=== PATIENT | female | born 1965 | race Caucasian/White ===

== ENCOUNTER 2019-05-08 13:33 | Emergency (ER) | payer SELFPAY ==
[~2019-05-08] VITALS: Ht 157.5 cm; Wt 64.0 kg
[2019-05-08 13:45] VITALS: Ht 157.5 cm; Wt 64.0 kg
[2019-05-08 16:43] VITALS: BP 109/44
== END 2019-05-08 16:43 | disposition home or self-care (01) ==
LOC: ED 13:33
DX: J18.9 Pneumonia, unspecified organism (principal); Z88.6 Allergy status to analgesic agent
CPT/HCPCS: 87804; J0696

== ENCOUNTER 2019-05-17 09:45 | Inpatient (IN) | payer SELFPAY ==
[~2019-05-17] VITALS: Ht 157.5 cm; Wt 71.4 kg
[2019-05-17 11:10] LABS: CALCIUM 8.7 mg/dL (8.5-10.1); CARBON DIOXIDE 28.8 mmol/L (21-32); CHLORIDE SERUM 99 mmol/L (98-107); CREATININE SERUM 0.7 mg/dL (0.6-1.0); GFR1 > 60 mL/min; GLUCOSE SERUM 97 mg/dL (74-106); POTASSIUM SERUM 3.3 mmol/L (3.5-5.1); SODIUM SERUM 137 mmol/L (136-145)
[2019-05-17 11:14] LABS: ALKALINE PHOSPHATASE 79 U/L (46-116); ALT/SGPT 15 U/L (14-59); AST/SGOT 14 U/L (15-37); BILIRUBIN TOTAL 0.34 mg/dL (0.20-1.00); TOTAL PROTEIN, SERUM 6.8 g/dL (6.4-8.2)
[2019-05-17 11:15] LABS: ALBUMIN 2.2 g/dL (3.4-5.0)
[2019-05-17 11:34] LABS: RED CELL DISTRIBUTION WIDTH 13.8 % (11.5-14.5)
[2019-05-17 11:35] LABS: PLATELET COUNT 451 x10^3mcL (130-400)
[2019-05-17 11:51] LABS: microscopic required? YES; urine erythrocyte NEGATIVE (NEGATIVE)
[2019-05-17 12:52] LABS: MAGNESIUM 1.9 mg/dL (1.8-2.4); PHOSPHOROUS 3.9 mg/dL (2.5-4.9)
[2019-05-17 12:53] LABS: CHOLESTEROL/HDL RATIO 3.9
[2019-05-17 13:01] LABS: T3 TOTAL 0.86 ng/mL
[2019-05-17 13:06] LABS: FREE T4 1.84 ng/dL (0.76-1.46); FREE THYROXINE INDEX 5.3 ug/dL (1.4-4.5)
[2019-05-17 13:15] LABS: BAND NEUTROPHIL 3 % (0-10); MONOCYTE 3 % (0-7); SEGMENTED NEUTROPHILS 23 % (37-75)
[2019-05-17 13:16] LABS: PLATELET MORPHOLOGY PLATELETS INCREASED; rbc morphology (normal/abnorm) NORMAL (NORMAL)
[2019-05-17 13:33] VITALS: BP 108/52
[2019-05-17 16:36] VITALS: BP 100/40
[2019-05-17 20:50] VITALS: BP 110/57
[2019-05-18 05:13] VITALS: BP 114/57
[2019-05-18 06:21] LABS: CARBON DIOXIDE 28.9 mmol/L (21-32); CHLORIDE SERUM 104 mmol/L (98-107); CREATININE SERUM 0.6 mg/dL (0.6-1.0); GFR1 > 60 mL/min; GLUCOSE SERUM 92 mg/dL (74-106); POTASSIUM SERUM 3.3 mmol/L (3.5-5.1); SODIUM SERUM 140 mmol/L (136-145)
[2019-05-18 06:23] LABS: RED CELL DISTRIBUTION WIDTH 13.7 % (11.5-14.5)
[2019-05-18 07:16] VITALS: BP 96/45
[2019-05-18 07:37] LABS: BASOPHIL % 0 % (0-2); PLATELET COUNT 419 x10^3mcL (130-400)
[2019-05-18 15:57] VITALS: BP 116/62
[2019-05-18 20:20] VITALS: BP 90/51
[2019-05-18 23:31] VITALS: BP 93/53
[2019-05-19 07:13] LABS: RED CELL DISTRIBUTION WIDTH 13.9 % (11.5-14.5)
[2019-05-19 07:25] LABS: PLATELET COUNT 427 x10^3mcL (130-400)
[2019-05-19 07:36] LABS: CARBON DIOXIDE 24.6 mmol/L (21-32); CHLORIDE SERUM 107 mmol/L (98-107); CREATININE SERUM 0.7 mg/dL (0.6-1.0); GFR1 > 60 mL/min; GLUCOSE SERUM 82 mg/dL (74-106); POTASSIUM SERUM 3.6 mmol/L (3.5-5.1); SODIUM SERUM 141 mmol/L (136-145)
[2019-05-19 08:25] VITALS: BP 101/35
[2019-05-19 11:09] LABS: BAND NEUTROPHIL 3 % (0-10); MONOCYTE 3 % (0-7); SEGMENTED NEUTROPHILS 20 % (37-75)
[2019-05-19 11:11] LABS: PLATELET MORPHOLOGY PLATELETS INCREASED
[2019-05-19 11:15] LABS: rbc morphology (normal/abnorm) NORMAL (NORMAL)
[2019-05-19 16:25] VITALS: BP 110/54
[2019-05-19 19:53] VITALS: BP 125/61
[2019-05-20 04:51] VITALS: BP 130/68
[2019-05-20 06:59] LABS: CALCIUM 8.4 mg/dL (8.5-10.1); CARBON DIOXIDE 23.8 mmol/L (21-32); CREATININE SERUM 1.2 mg/dL (0.6-1.0); POTASSIUM SERUM 3.5 mmol/L (3.5-5.1)
[2019-05-20 07:02] LABS: RED CELL DISTRIBUTION WIDTH 13.6 % (11.5-14.5)
[2019-05-20 08:16] LABS: PLATELET COUNT 436 x10^3mcL (130-400)
[2019-05-20 08:35] VITALS: BP 124/54
[2019-05-20 10:26] LABS: BAND NEUTROPHIL 4 % (0-10); MONOCYTE 3 % (0-7); SEGMENTED NEUTROPHILS 22 % (37-75)
[2019-05-20 10:27] LABS: PLATELET MORPHOLOGY PLATELETS INCREASED; rbc morphology (normal/abnorm) NORMAL (NORMAL)
[2019-05-20 10:29] VITALS: BP 124/54
[2019-05-20 16:43] VITALS: BP 105/48
[2019-05-20 21:10] VITALS: BP 112/57
[2019-05-21 05:17] VITALS: BP 102/59
[2019-05-21 07:47] LABS: RED CELL DISTRIBUTION WIDTH 14.3 % (11.5-14.5)
[2019-05-21 08:12] LABS: PLATELET COUNT 408 x10^3mcL (130-400)
[2019-05-21 09:41] VITALS: BP 114/54
[2019-05-21 11:35] LABS: BAND NEUTROPHIL 1 % (0-10); BASOPHIL 0 % (0-2); MONOCYTE 6 % (0-7); SEGMENTED NEUTROPHILS 23 % (37-75); rbc morphology (normal/abnorm) ABNORMAL (NORMAL)
[2019-05-21 11:36] LABS: PLATELET MORPHOLOGY PLATELETS INCREASED
[2019-05-21 11:40] LABS: CARBON DIOXIDE 21.4 mmol/L (21-32); CREATININE SERUM 1.3 mg/dL (0.6-1.0); POTASSIUM SERUM 3.2 mmol/L (3.5-5.1)
[2019-05-21 20:34] VITALS: BP 124/52
[2019-05-22 06:02] VITALS: BP 126/68
[2019-05-22 06:27] LABS: BASOPHIL % 0.2 % (0-2); RED CELL DISTRIBUTION WIDTH 13.9 % (11.5-14.5)
[2019-05-22 06:29] LABS: PLATELET COUNT 409 x10^3mcL (130-400)
[2019-05-22 06:38] LABS: CARBON DIOXIDE 21.4 mmol/L (21-32); CREATININE SERUM 1.6 mg/dL (0.6-1.0); POTASSIUM SERUM 3.6 mmol/L (3.5-5.1)
[2019-05-22 08:31] VITALS: BP 114/60
[2019-05-22 16:15] VITALS: BP 99/48
[2019-05-22 17:00] VITALS: BP 104/57
[2019-05-22 19:31] VITALS: BP 100/49
[2019-05-23 05:26] VITALS: BP 139/83
[2019-05-23 06:47] LABS: CARBON DIOXIDE 21.2 mmol/L (21-32); CREATININE SERUM 1.6 mg/dL (0.6-1.0); POTASSIUM SERUM 3.1 mmol/L (3.5-5.1); RED CELL DISTRIBUTION WIDTH 14.3 % (11.5-14.5)
[2019-05-23 07:57] LABS: PLATELET COUNT 418 x10^3mcL (130-400)
[2019-05-23 09:02] VITALS: BP 128/68
[2019-05-23 10:51] VITALS: Ht 157.5 cm; Wt 71.4 kg
[2019-05-23 13:01] LABS: BAND NEUTROPHIL 3 % (0-10); BASOPHIL 0 % (0-2); MONOCYTE 6 % (0-7); SEGMENTED NEUTROPHILS 32 % (37-75)
[2019-05-23 13:03] LABS: PLATELET MORPHOLOGY PLATELETS INCREASED
[2019-05-23 16:46] VITALS: BP 131/66
[2019-05-23 19:19] VITALS: BP 125/54
[2019-05-23 20:02] VITALS: BP 131/66
[2019-05-24 04:36] VITALS: BP 135/71
[2019-05-24 06:19] LABS: PLATELET COUNT 351 x10^3mcL (130-400); RED CELL DISTRIBUTION WIDTH 14.2 % (11.5-14.5)
[2019-05-24 06:27] LABS: CARBON DIOXIDE 22.4 mmol/L (21-32); CREATININE SERUM 1.7 mg/dL (0.6-1.0)
[2019-05-24 07:52] LABS: BAND NEUTROPHIL 0 % (0-10); BASOPHIL 0 % (0-2); MONOCYTE 5 % (0-7); SEGMENTED NEUTROPHILS 27 % (37-75)
[2019-05-24 07:53] LABS: rbc morphology (normal/abnorm) NORMAL (NORMAL)
[2019-05-24 07:54] LABS: PLATELET MORPHOLOGY PLATELETS NORMAL
[2019-05-24 08:45] VITALS: BP 128/71
[2019-05-24 17:24] VITALS: BP 133/84
[2019-05-24 20:06] VITALS: BP 135/69
[2019-05-25 06:10] VITALS: BP 128/61
[2019-05-25 06:27] LABS: CALCIUM 7.7 mg/dL (8.5-10.1); CARBON DIOXIDE 21.5 mmol/L (21-32); CREATININE SERUM 1.6 mg/dL (0.6-1.0)
[2019-05-25 07:10] LABS: PLATELET COUNT 323 x10^3mcL (130-400); RED CELL DISTRIBUTION WIDTH 14.3 % (11.5-14.5)
[2019-05-25 08:55] VITALS: BP 115/56
[2019-05-25 13:03] LABS: BAND NEUTROPHIL 1 % (0-10); MONOCYTE 5 % (0-7)
[2019-05-25 13:04] LABS: SEGMENTED NEUTROPHILS 22 % (37-75); rbc morphology (normal/abnorm) NORMAL (NORMAL)
[2019-05-25 13:05] LABS: PLATELET MORPHOLOGY PLATELETS NORMAL; burr cell (echinocyte) 1+
[2019-05-25 17:08] VITALS: BP 125/63
[2019-05-25 19:53] VITALS: BP 135/61
[2019-05-26 08:22] VITALS: BP 118/46
[2019-05-26 09:11] LABS: PLATELET COUNT 342 x10^3mcL (130-400)
[2019-05-26 09:21] LABS: RED CELL DISTRIBUTION WIDTH 14.8 % (11.5-14.5)
[2019-05-26 13:23] LABS: MONOCYTE 3 % (0-7); SEGMENTED NEUTROPHILS 26 % (37-75)
[2019-05-26 13:24] LABS: PLATELET MORPHOLOGY PLATELETS NORMAL; rbc morphology (normal/abnorm) ABNORMAL (NORMAL)
[2019-05-26 16:11] VITALS: BP 122/73
[2019-05-26 20:30] VITALS: BP 127/76
[2019-05-27 05:14] VITALS: BP 122/70
[2019-05-27 06:40] LABS: PLATELET COUNT 347 x10^3mcL (130-400)
[2019-05-27 06:42] LABS: CALCIUM 8.1 mg/dL (8.5-10.1); CARBON DIOXIDE 24.8 mmol/L (21-32); CREATININE SERUM 1.6 mg/dL (0.6-1.0); POTASSIUM SERUM 3.4 mmol/L (3.5-5.1)
[2019-05-27 06:57] LABS: RED CELL DISTRIBUTION WIDTH 14.6 % (11.5-14.5)
[2019-05-27 09:47] LABS: MONOCYTE 6 % (0-7); SEGMENTED NEUTROPHILS 88 % (37-75)
[2019-05-27 11:10] LABS: rbc morphology (normal/abnorm) NORMAL (NORMAL)
[2019-05-27 13:48] VITALS: BP 103/60
[2019-05-27 17:03] VITALS: BP 128/60
[2019-05-27 19:49] VITALS: BP 112/59
[2019-05-28 04:43] VITALS: BP 77/35
[2019-05-28 05:57] VITALS: BP 124/72
[2019-05-28 08:34] LABS: PLATELET COUNT 357 x10^3mcL (130-400); RED CELL DISTRIBUTION WIDTH 14.3 % (11.5-14.5)
[2019-05-28 08:52] VITALS: BP 140/68
[2019-05-28 12:57] LABS: ATYPICAL LYMPH 0 %; BAND NEUTROPHIL 1 % (0-10); BASOPHIL 0 % (0-2); METAMYELOCTE 0 % (0-2); MONOCYTE 4 % (0-7); SEGMENTED NEUTROPHILS 30 % (37-75)
[2019-05-28 12:58] LABS: rbc morphology (normal/abnorm) NORMAL (NORMAL)
[2019-05-28 16:53] VITALS: BP 141/64
[2019-05-28 21:04] VITALS: BP 118/54
[2019-05-29 05:35] VITALS: BP 136/69
[2019-05-29 07:27] LABS: PLATELET COUNT 373 x10^3mcL (130-400)
[2019-05-29 08:00] LABS: RED CELL DISTRIBUTION WIDTH 15.1 % (11.5-14.5)
[2019-05-29 08:22] VITALS: BP 128/59
[2019-05-29 08:42] LABS: CALCIUM 8.2 mg/dL (8.5-10.1); CARBON DIOXIDE 25.4 mmol/L (21-32); CREATININE SERUM 1.7 mg/dL (0.6-1.0); POTASSIUM SERUM 3.6 mmol/L (3.5-5.1)
[2019-05-29 09:32] LABS: MONOCYTE 4 % (0-7); SEGMENTED NEUTROPHILS 25 % (37-75)
[2019-05-29 09:33] LABS: BAND NEUTROPHIL 1 % (0-10); BASOPHIL 0 % (0-2)
[2019-05-29 09:34] LABS: PLATELET MORPHOLOGY PLATELETS INCREASED
[2019-05-29 09:35] LABS: rbc morphology (normal/abnorm) ABNORMAL (NORMAL)
[2019-05-29 16:25] VITALS: BP 133/58
[2019-05-29 21:10] VITALS: BP 139/73
[2019-05-30 05:30] VITALS: BP 137/60
[2019-05-30 06:55] LABS: BASOPHIL % 0.1 % (0-2); PLATELET COUNT 371 x10^3mcL (130-400)
[2019-05-30 06:56] LABS: CALCIUM 8.3 mg/dL (8.5-10.1); CARBON DIOXIDE 25.3 mmol/L (21-32); CREATININE SERUM 1.6 mg/dL (0.6-1.0); POTASSIUM SERUM 3.7 mmol/L (3.5-5.1)
[2019-05-30 07:51] LABS: RED CELL DISTRIBUTION WIDTH 14.7 % (11.5-14.5)
[2019-05-30 08:40] VITALS: BP 128/53
[2019-05-30 16:54] VITALS: BP 133/66
[2019-05-30 19:55] VITALS: BP 133/73
[2019-05-31 05:44] VITALS: BP 125/59
[2019-05-31 06:57] LABS: CALCIUM 8.5 mg/dL (8.5-10.1); CARBON DIOXIDE 24.9 mmol/L (21-32); CREATININE SERUM 1.4 mg/dL (0.6-1.0); POTASSIUM SERUM 3.7 mmol/L (3.5-5.1)
[2019-05-31 07:08] LABS: PLATELET COUNT 394 x10^3mcL (130-400)
[2019-05-31 08:06] VITALS: BP 115/46
[2019-05-31 10:02] LABS: BAND NEUTROPHIL 1 % (0-10); BASOPHIL 0 % (0-2); MONOCYTE 4 % (0-7); PLATELET MORPHOLOGY PLATELETS NORMAL; SEGMENTED NEUTROPHILS 30 % (37-75); rbc morphology (normal/abnorm) NORMAL (NORMAL)
[2019-05-31 16:18] VITALS: BP 128/52
[2019-05-31 19:57] VITALS: BP 111/57
[2019-06-01 05:38] VITALS: BP 122/62
[2019-06-01 07:20] LABS: PLATELET COUNT 407 x10^3mcL (130-400); RED CELL DISTRIBUTION WIDTH 15.3 % (11.5-14.5)
[2019-06-01 07:31] LABS: CALCIUM 8.4 mg/dL (8.5-10.1); CARBON DIOXIDE 25.3 mmol/L (21-32); CREATININE SERUM 1.4 mg/dL (0.6-1.0); POTASSIUM SERUM 3.5 mmol/L (3.5-5.1)
[2019-06-01 08:51] VITALS: BP 126/52
[2019-06-01] MEDS ORDERED: ZITHROMAX500 MG PO (11:13)
[2019-06-01 11:25] VITALS: BP 126/52
[2019-06-01 13:23] LABS: BAND NEUTROPHIL 2 % (0-10); BASOPHIL 0 % (0-2); MONOCYTE 6 % (0-7); PLATELET MORPHOLOGY PLATELETS INCREASED; SEGMENTED NEUTROPHILS 40 % (37-75)
[2019-06-01 13:24] LABS: rbc morphology (normal/abnorm) ABNORMAL (NORMAL)
== END 2019-06-01 12:27 | disposition home or self-care (01) | DRG 193 ==
LOC: ED 09:45 → MU 12:08
PROVIDERS: Emergency Medicine; Internal Medicine; ADMIT General Practice
PROC: 0B9F8ZX Drainage of Right Lower Lung Lobe, Via Natural or Artificial Opening Endoscopic, Diagnostic (ICD-10-PCS; 2019-05-21)
PROC: 0B9J8ZX Drainage of Left Lower Lung Lobe, Via Natural or Artificial Opening Endoscopic, Diagnostic (ICD-10-PCS; principal; 2019-05-21 15:30)
DX: J15.9 Unspecified bacterial pneumonia (principal); N17.0 Acute kidney failure with tubular necrosis; J96.01 Acute respiratory failure with hypoxia; N39.0 Urinary tract infection, site not specified; E86.0 Dehydration; D72.829 Elevated white blood cell count, unspecified; Z88.6 Allergy status to analgesic agent
CPT/HCPCS: 83880; 84439; 86480; 87116; 87206; 87804; 94150; G0378; J0132; J0330; J0456; J0692; J0696; J1885; J1940; J2405; J2543; J2704; J3370; J7030; J7040; J7050; J7120; J7620; J7626; Q0092; Q9967

== ENCOUNTER → 2019-07-09 | Outpatient (CLI) | payer MEDICAID ==
[~2019-07-09] MED LIST: ZITHROMAX500 MG PO
[2019-07-09 12:27] LABS: PLATELET COUNT 750 x10^3mcL (130-400); RED CELL DISTRIBUTION WIDTH 16.4 % (11.5-14.5)
[2019-07-09 12:49] LABS: MONOCYTE 4 % (0-7); SEGMENTED NEUTROPHILS 27 % (37-75)
[2019-07-09 12:50] LABS: PLATELET MORPHOLOGY PLATELETS INCREASED; rbc morphology (normal/abnorm) ABNORMAL (NORMAL)
[2019-07-09 12:56] LABS: FREE T4 1.24 ng/dL (0.76-1.46)
== END | disposition home or self-care (01) ==
LOC: LB 11:55
DX: R63.0 Anorexia (principal); R05 Cough
CPT/HCPCS: 84439